=== PATIENT | female | born 1955 | race Caucasian/White ===

== ENCOUNTER → 2017-10-03 | Outpatient (CLI) | payer BC ==
[~2017-10-03] MED LIST: ALEVE220 MG PO; APAP500; CALCIUM 500 +1 EAC5 PO; CLONAZEPAM 0.50.5 M1 PO; COLACE100 MG; DICLOFENAC SODI75 MG PO; DIPHENHIST50 MG PO; FISHOIL; GABAPENTIN100 MG PO; IBUPROFEN 200200 M1 PO; IBUPROFEN 400400 M1 PO; LEXAPRO 10 MG T10 MG PO; LIORESAL 10 MG10 MG PO; MIRALAX255 GM; NABUMETONE 500500 M1 PO; NEURONTIN 300300 M1 PO; NEURONTIN 300M300 M2 PO; NEURONTIN600 MG PO; NEURONTIN800 MG PO; NUCYNTA ER100 MG PO; NUCYNTA100 MG PO; NUCYNTA75 MG PO; OXYCODONE HCL5 MG PO; ROXICODONE5 MG PO; SERTRALINE HCL50 MG PO; SKELAXIN 800 M800 MG PO; VALIUM10 MG PO; VICODIN 5-5001 EACH PO; VIT D PO; ZOLOFT 50 MG TA50 M1 PO; ZOLOFT PO
--- NOTE | 2017-10-19 07:40 | PAINCON ---
[address] [address] PAIN MANAGEMENT CONSULTATION Name: VIRIDIANA AYALA Room: [facility].#: [id number] Admission: 10/03/17 Attend Phys: Justin Jordan DO Discharge: Date of : 51 Report #: [id number] THIS REPORT FOR: //name// CC: Justin Camp III, MD DATE OF SERVICE: 10/03/2017 REFERRING PHYSICIAN: Byron Camp III, M.D. CHIEF COMPLAINT: Low back pain, bilateral lower extremity pain and increasing neck pain. HISTORY OF PRESENT ILLNESS: As you know, the patient is a 62-year-old female who has [facility] for low back pain and bilateral lower extremity pain for years. She returns today stating increasing neck pain, for which she wishes further evaluation. She denies new injury or new trauma that may have led to progression of neck symptoms. She states this has been present for some time, but has not been intense until just recently. She has been referred back to our clinic for medication management and also to evaluate neck pain. ALLERGIES: IODINATED CONTRAST AGENTS, CODEINE, CLINDAMYCIN, ADHESIVE TAPES, CLARITHROMYCIN AND LEVOFLOXACIN. CURRENT MEDICATIONS: Baclofen, clonazepam, gabapentin, naproxen, oxycodone and sertraline. SOCIAL HISTORY: The patient denies tobacco, alcohol, IV or illicit drug use. She is retired. retired years ago. She is unaccompanied today. IMAGING: No new imaging available. PHYSICAL EXAMINATION: VITAL SIGNS: Blood pressure 133/71, pulse 71 and respiratory rate 16, unlabored. The patient is 97% on room air, current temperature 98.0 degrees Fahrenheit. Height 5 feet 7 inches tall, weight 190 pounds and BMI calculated at 29.8. GENERAL: Well-developed, well-nourished and well-hydrated 62-year-old female appearing her stated age. She is placing pain score today 3/10. HEENT: Normocephalic, atraumatic. Pupils equal, round and reactive to light. Extraocular muscles are intact. Sclerae nonicteric, without injection. NEUROLOGIC: Cranial nerves 2-12 grossly intact. Speech is fluent. LUNGS: Clear. No wheezes, rhonchi or rales. CARDIOVASCULAR: Regular. [place] [address] PAIN MANAGEMENT CONSULTATION Name: VIRIDIANA AYALA Remy Room: [facility]#: [id number] Admission: 10/03/17 Attend Phys: Justin Jordan DO Discharge: Date of : 53 Report #: [id number] ABDOMEN: Soft, nontender. EXTREMITIES: Show no clubbing, no cyanosis and no edema. MUSCULOSKELETAL: There is some palpatory tenderness over the paraspinal musculature, cervical spine. No spinous process tenderness. Cervical provocation testing is met with increasing pain. No radiation of symptoms. Spurling's test is negative. Muscle bulk and tone equal and symmetrical in the lower and upper extremities. She is intact to light touch from C5-T1 dermatomes. Seated straight leg raising negative. Supine straight leg raising is positive. Ankle clonus negative. Babinski is negative. ASSESSMENT: 1. Chronic neck pain. 2. Cervical spondylosis without radiculopathy. 3. Chronic lumbar radiculopathy. 4. Displacement of lumbar intervertebral disk with radiculopathy. 5. Lumbosacral spondylosis with radiculopathy. 6. Lumbar degeneration. 7. Chronic intractable pain. PLAN: 1. The patient has returned today in followup visit where we were discussing the continuation of medication therapy, when the patient described some increasing neck pain issues and some crepitus with movement and pain with certain activities. The patient and I discussed that further evaluation of the neck would be warranted. We will send the patient for x-ray imaging, AP and lateral imaging of the cervical spine, will be obtained today. We will review the findings once they are available and discuss the treatment options based on the findings. I do believe we will see some arthritic changes depending on how profound those arthritic changes may change our direction of treatment. At present, we will use a conservative approach. 2. The patient will be sent for physical therapy twice a week for 6 weeks for cervical spondylosis without radiculopathy. We will initiate therapy with physical therapy and then discuss medication management if necessary or interventional treatments, depending on the findings of the x-ray imaging. 3. The patient will be continued on oxycodone 5 mg dose 1-1/2 tabs twice a day. She was given #90 tablets, releases of today, 4 weeks from today, 8 weeks from today, 3 months' worth of medication. 4. The patient was provided a refill prescription on her clonazepam 0.5 mg dose 1 tab p.o. at bedtime, #30, 2 refills. 5. The patient was provided prescription of diclofenac sodium 75 mg dose 1 tab p.o. b.i.d., #60 with 2 refills, 3 months' worth of medication. 6. The patient will contact our clinic over the next couple of days and we can provide the findings of the x-ray imaging, discuss interventional treatments if necessary. We will be looking forward to talking to her on the phone about the [facility] [address] [place] [address] PAIN MANAGEMENT CONSULTATION Name: VIRIDIANA AYALA Room: [facility] Ceja#: [id number] Admission: 10/03/17 Attend Phys: Justin Jordan DO Discharge: Date of : 51 Report #: [id number] x-ray imaging. If return visit is necessary, we will schedule her at that point. <ELECTRONICALLY SIGNED> By: Justin Jordan DO 10/19/17 0740 1216 [id number] Jordan DO /nt
== END ==
LOC: M.PC 01:13
DX: M51.16 Intervertebral disc disorders with radiculopathy, lumbar region (principal); M47.22 Other spondylosis with radiculopathy, cervical region; M54.2 Cervicalgia; M47.27 Other spondylosis with radiculopathy, lumbosacral region; M47.896 Other spondylosis, lumbar region; G89.29 Other chronic pain

== ENCOUNTER → 2017-12-27 | Outpatient (CLI) | payer BC ==
--- NOTE | 2017-12-28 14:44 | PAINCON ---
[address] [address] PAIN MANAGEMENT CONSULTATION Name: VIRIDIANA AYALA Room: [facility] Marcial#: [id number] Admission: 12/27/17 Attend Phys: Kriss Kaba MD Discharge: Date of : 53 Report #: [id number] THIS REPORT FOR: //name// CC: Kriss Camp DATE OF SERVICE: 12/27/2017 CHIEF COMPLAINT: Lumbar radicular pain down in the lower portion of the back and lower extremities. FOLLOWUP HISTORY: The patient is a 62-year-old female who has been followed by Dr. Justin Jordan. This is my first time meeting with her. She has a history of chronic low back pain. She does have a spinal cord stimulator and pain in place. She finds that this is helpful. She takes care of her father who lives with her. She rates her pain as a 0 with her current medicine use at this time. She finds that the oxycodone 7.5 mg q.12 hours is helpful. She also uses Voltaren and gabapentin. She finds that all these medications together helpful in conjunction with her spinal cord stimulator. She would like to have her medications renewed. She states that they continue to be helpful. She is not having any problems with somnolence, confused mentation or constipation. She feels that she is working and these medications are beneficial. She has been suffering from chronic pain since 2009. ALLERGIES: IV CONTRAST DYE, CODEINE, ADHESIVES, CLINDAMYCIN, CLARITHROMYCIN, LEVOFLOXACIN. CURRENT MEDICATIONS: Baclofen 10 mg b.i.d., clonazepam 0.5 mg, Voltaren 75 mg tablets b.i.d., Neurontin 600 mg 2 tablets a.m. one tablet at noon, and 2 tablets at bedtime, Naprosyn 220 mg t.i.d., oxycodone 5 mg q.12 hours, Zoloft 150 mg daily. PAST MEDICAL HISTORY: Depression, anxiety, gastroesophageal reflux. PAST SURGICAL HISTORY: Cholecystectomy, ankle surgery, eyelid surgery, tonsillectomy, x 2, plantar fasciitis release, carpal tunnel release. 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 REVIEW OF SYSTEMS: The patient has pain and discomfort radiating down into her L4 dermatomal distribution bilateral. She has also had some pain in the cervical area with occasional numbness and tingling. MRI of the lumbar spine dated 04/23/2010 showed a mild bulge at the L4-L5 disc noted with significant bilateral facet degenerative changes with some ligamentum flavum hypertrophy with central canal mildly narrowed to 1 cm. Mild inferior [place] [address] PAIN MANAGEMENT CONSULTATION Name: VIRIDIANA AYALA [id number] Admission: 12/27/17 Attend Phys: Kriss Kaba MD Discharge: Date of : 53 Report #: [id number] narrowing is noted. There is, at L3-L4, mild disc bulging with moderate facet degenerative changes. Some slight inferior neural foraminal narrowing at L2-L3. There is moderate bulging seen with moderate facet degenerative changes. L5-S1 appears normal. PAIN CLINIC ASSESSMENT: 1. The patient states she is not being treated for osteoarthritis or rheumatoid arthritis. 2. Height 5 feet 7 inches, weight 180 pounds, BMI is 29. 3. Vital Signs: Blood pressure 119/79, heart rate 77, respiratory rate 16, room air saturation 94%, and temperature 98.2. 4. Pain intensity is 10. 5. Fall risk. The patient has not fallen. 6. The patient is not on blood thinners. 7. History of hypertension. The patient has not been treated for hypertension. 8. Opioid therapy greater than 6 weeks. The patient has signed the pain clinic contract. 9. Risk assessment tool. 10. Functional assessment tool. 11. Recreational drug use. The patient denies. 12. Tobacco use: The patient denies. 13. Alcohol use: The patient denies. PHYSICAL EXAMINATION: GENERAL: The patient is a well-developed white female. Appearance: Appears her stated age. Orientation: The patient is alert and oriented x 3. AFFECT: The patient's affect appears appropriate. HEENT: Normocephalic, atraumatic. Extraocular eye muscles intact. Speech is normal. No complaints of sinus congestion. NECK: Without adenopathy or bruits. CHEST: Lungs clear to auscultation. HEART: Regular rate. ABDOMEN: Nontender. MUSCULOSKELETAL: Alignment generally appears normal. Low back pain. The patient does have some pain and discomfort with pain radiating down into the L4-L5 nerve distribution bilaterally. Muscle bulk appears to be normal. The patient's gait appears normal. IMPRESSION: 1. History of lumbar radiculopathy in the L4-L5 distribution. 2. Lumbosacral spondylosis. 3. Chronic neck pain. 4. Cervical spondylosis without radiculopathy. 5. Chronic lumbar radiculopathy. 6. Displacement of lumbar intervertebral disc with radiculopathy. 7. Lumbosacral spondylosis [place] [address] PAIN MANAGEMENT CONSULTATION Name: VIRIDIANA AYALA Room: [facility]#: [id number] Admission: 12/27/17 Attend Phys: Kriss Kaba MD Discharge: Date of : 53 Report #: [id number] 8. Lumbar degeneration. 9. Chronic intractable pain. RECOMMENDATION: We discussed treatment options with the patient. At this juncture, she feels that her pain medications are adequate. She rates her pain as a zero at this juncture with the use of her current medical regimen of oxycodone 7.5 mg b.i.d. and clonazepam, Voltaren and gabapentin. She takes care of her father. This is quite taxing. She overall feels that this medication enables her to continue to be productive and take care of her father and activities of daily living. She is having no complications from its use. She keeps it in a guarded area. She is aware that opioid medications can be addictive as well as their potency can fall off with tolerance. She feels that things are going reasonably well and would like to have her medications renewed today. She will call us if she has any problems with medications. The patient has been given a script to go for physical therapy. This was issued on 09/2018. We would like to thank you for letting us participate in her care. We hope she continues to improve. <ELECTRONICALLY SIGNED> By: Kriss Kaba MD 12/28/17 1444 1406 1856N. Joseph Kaba MD /VASILE
== END ==
LOC: M.PC 12-26 08:30
DX: M47.26 Other spondylosis with radiculopathy, lumbar region (principal); M47.22 Other spondylosis with radiculopathy, cervical region; M51.16 Intervertebral disc disorders with radiculopathy, lumbar region; M47.27 Other spondylosis with radiculopathy, lumbosacral region; G89.4 Chronic pain syndrome; I10 Essential (primary) hypertension

== ENCOUNTER → 2018-03-21 | Outpatient (CLI) | payer BC ==
--- NOTE | 2018-03-29 14:05 | PAINCON ---
[address] [address] PAIN MANAGEMENT CONSULTATION Name: VIRDIIANA AYALA Room: [facility] Ceja#: [id number] Admission: 03/21/18 Attend Phys: Kriss Kaba MD Discharge: Date of : 53 Report #: [id number] THIS REPORT FOR: //name// CC: Kriss Camp DATE OF SERVICE: 03/21/2018 FOLLOWUP HISTORY: The patient is a 62-year-old female who has been followed in the Pain Clinic. She has history of chronic low back pain. She uses a spinal cord stimulator. As you may recall, she did have some burning discomfort. This was in the past. Her generator was replaced. She is not having any problem at this juncture. Overall, she feels that her spinal cord stimulator continues to be helpful. Rates her pain as a very controlled level of about 0 today. She finds that her medications continued to be helpful. Feels that gabapentin, oxycodone, clonazepam and Voltaren are helpful. Denies any problems with Voltaren with her GI tract. Feels that baclofen is efficacious as well. She is taking her medication as prescribed. Not have any problems with them. She has returned today for renewal of her medications. Her pain is diffusely involved in her low back. Has some pain that radiates down into her legs. This has been an ongoing problem for "years." Notes that things that exacerbate her discomfort can be activity, cold weather, walking, sitting, standing, prolonged lifting or bending. ALLERGIES: IV CONTRAST DYE, CODEINE, ADHESIVES, CLINDAMYCIN, CLARITHROMYCIN, AND LEVOFLOXACIN. CURRENT MEDICATIONS: Baclofen 10 mg b.i.d., clonazepam 0.5 mg, Voltaren 75 mg b.i.d., Neurontin 2 tablets at bedtime and 1 tablet a.m., Naprosyn 220 mg t.i.d., oxycodone 5 q.12h., and Zoloft 150 mg daily. PAIN CLINIC ASSESSMENT: 1. The patient is not being treated for osteoarthritis or rheumatoid arthritis. 2. Height 5 feet 7 inches, weight 189 pounds, BMI is 29.7. 3. Vital signs: Blood pressure 140/77, heart rate 82, respiratory rate 16, room air saturation 95%, and temperature 98.2. 4. Pain intensity, 0/10. 5. Fall risk. The patient has not fallen in the last 3 months. 6. Blood thinner. The patient is not on a blood thinning medication. 7. History of hypertension. The patient is not being treated for hypertension. 8. Opioid therapy greater than 6 weeks. The patient has signed a contract with the Pain Clinic today. She only gets her medication from one source. 9. Risk assessment tool. 10. Functional assessment tool. 11. Recreational drug use. The patient denies use of recreational drugs. 12. Tobacco: The patient [place] [address] PAIN MANAGEMENT CONSULTATION Name: LUCYVIRIDIANA Remy Room: [facility]#: [id number] Admission: 03/21/18 Attend Phys: Kriss Kaba MD Discharge: Date of : 53 Report #: [id number] 13. Alcohol use. The patient denies use of alcohol. HISTORY OF PRESENT ILLNESS: The patient is a well-developed white female, appears her stated age. She is alert and oriented x 3. Her affect is appropriate. HEENT: Normocephalic and atraumatic. Extraocular eye muscles intact. The patient wears glasses. Speech is fluent. Mucous membranes are moist. NECK: Without adenopathy or bruits. CHEST: Clear to auscultation without crackles or rales. HEART: Regular rate. S1, S2. ABDOMEN: Nontender without organomegaly. MUSCULOSKELETAL: Alignment appears normal without significant kyphosis, scoliosis or lordosis. The patient does have pain, which radiates down into the lower portion of her back in the L4-L5 distribution bilaterally. Gait is normal. Upper extremity muscle strength 5/5 without sensory changes. Muscle bulk symmetrical. ASSESSMENT: 1. History of lumbar radiculopathy in the L4-L5 distribution. 2. Lumbosacral spondylosis. 3. Chronic neck pain. 4. Cervical spondylosis without radiculopathy. 5. Chronic lumbar radiculopathy. 6. Displacement of lumbar intervertebral disk with radiculopathy. 7. Lumbosacral spondylosis with radiculopathy. 8. Lumbar degeneration. 9. Chronic intractable pain. 10. Spinal cord stimulator placement for control of pain -- history of generator change. RECOMMENDATIONS: We discussed treatment options with the patient. She feels at this juncture, things are going reasonably well. Overall, she rates her pain as a 0 today. She finds that things are going reasonably well. She has had no complications from her medications. She does not feel that she needs to take as much gabapentin, which was approximately 6 tablets per day. She feels that 3 tablets per day would be more efficacious; that is what she is currently taking without any untoward consequences. She continues to live with her and take care of her family/father. She is aware of opioid medications and their addictive nature. She is watching the news. Keeps her medications in a guarded area. I understand that she should only get her medication from one source. The patient has been given a drug test today. She has also signed a contract to renew her medications with [place] [address] PAIN MANAGEMENT CONSULTATION Name: VIRIDIANA AYALA Room: [facility]#: [id number] Admission: 03/21/18 Attend Phys: Kriss Kaba MD Discharge: Date of : 53 Report #: [id number] We would like to thank you for letting us participate in her care. We hope she continues to improve. <ELECTRONICALLY SIGNED> By: Kriss Kaba MD 03/29/18 1405 0932 1120N. Joseph Kaba MD /nt
== END ==
LOC: M.PC 01:57
DX: M47.27 Other spondylosis with radiculopathy, lumbosacral region (principal); M47.812 Spondylosis without myelopathy or radiculopathy, cervical region; M51.16 Intervertebral disc disorders with radiculopathy, lumbar region; G89.4 Chronic pain syndrome; M54.2 Cervicalgia

== ENCOUNTER → 2018-06-13 | Outpatient (CLI) | payer BC ==
--- NOTE | 2018-06-14 16:42 | PAINCON ---
[address] [address] PAIN MANAGEMENT CONSULTATION Name: LUCYVIRIDIANA L Room: [facility]#: [id number] Admission: 06/13/18 Attend Phys: Kriss Kaba MD Discharge: Date of : 53 Report #: [id number] THIS REPORT FOR: //name// CC: Kriss Camp DATE OF SERVICE: 06/13/2018 CHIEF COMPLAINT: Low back pain in both legs. HISTORY OF PRESENT ILLNESS: The patient is a 62-year-old female, who has been followed in the pain clinic because of chronic pain involving her back. She has a spinal cord stimulator in place. She has had the generator replaced. Overall, she feels that things are going reasonably well. She rates her pain as a 2/10. She is having some pain that radiates down into her right leg and has switched over to the left side. She has used OxyContin in the past, but has stopped this medication and feels that things are going reasonably well. She feels that the ibuprofen is working "okay." She notes that her pain is worsened sometimes with use of house work and activity. CURRENT MEDICATIONS: Baclofen 10 mg b.i.d., clonazepam 0.5 mg, Voltaren 75 mg b.i.d., Neurontin 2 tablets at bedtime, 1 tablet a.m.; Naprosyn 220 mg to use as an alternate with Voltaren; and Zoloft 150 mg daily. ALLERGIES: THE PATIENT IS ALLERGIC TO IV CONTRAST DYE, CODEINE, ADHESIVES, CLINDAMYCIN, CLARITHROMYCIN, AND LEVOFLOXACIN. PAIN CLINIC ASSESSMENT: 1. The patient is not being treated for osteoarthritis or rheumatoid arthritis. 2. Pain intensity is 2/10. 3. Fall risk. The patient has not fallen in the last 3 months. 4. Blood thinner. The patient is not on a blood thinning medication. 5. History of hypertension. The patient is not being treated for hypertension. 6. Opioid therapy greater than 6 weeks. The patient has stopped use of the oxycodone. She feels that she is doing okay without it. 7. Risk assessment tool. The patient is at low risk for use of opioid. 8. Functional assessment tool. 9. Recreational drug use. The patient denies use of recreational drugs. 10. Tobacco: The patient denies use of tobacco. 11. Alcohol: The patient denies frequent use of alcoholic beverages. PHYSICAL EXAMINATION: GENERAL: The patient is a well-developed, well-nourished white female. She appears her stated age. She is alert and oriented x 3. Her affect is appropriate. Height 5 feet 7 inches, weight is 193 pounds, and BMI is 30.4. VITAL SIGNS: Blood pressure is 129/86, heart rate is 80, respiratory rate is [facility] [address] [place] [address] PAIN MANAGEMENT CONSULTATION Name: VIRIDIANA AYALA Room: [facility]#: [id number] Admission: 06/13/18 Attend Phys: Kriss Kaba MD Discharge: Date of : 53 Report #: [id number] 16, room air saturation is 96%, and temperature is 98.1. HEENT: Normocephalic, atraumatic. Extraocular eye muscles intact. The patient wears glasses. Speech is fluent. Mucous membranes are moist. NECK: Without adenopathy or bruits. CHEST: Clear to auscultation without crackles or rales. HEART: Regular rate. S1, S2. ABDOMEN: Nontender without organomegaly. MUSCULOSKELETAL: Without significant kyphosis, scoliosis, or lordosis. The patient does have some pain in low back area. It radiates down into the lower portion of her back and in the L4-L5 distribution bilaterally. Gait is normal. Upper extremity strength is judged to be 5/5 without sensory changes. Muscle bulk is symmetric. ASSESSMENT: 1. History of lumbar radicular pain in the L4-L5 distribution. 2. Lumbosacral spondylosis. 3. Chronic neck pain. 4. Cervical spondylosis without radiculopathy. 5. Chronic lumbar radiculopathy. 6. Displacement of lumbar intervertebral disk with radiculopathy. 7. Lumbosacral spondylosis with radiculopathy. 8. Lumbar degeneration. 9. Chronic intractable pain. 10. Spinal cord stimulator placed for pain control, status post generator change. RECOMMENDATIONS: We have discussed treatment options with the patient. Overall, she feels that things are going reasonably well. She has decreased the use of her oxycodone. At this juncture, she would like to continue with her current medications of gabapentin, clonazepam, and Zoloft. She feels that things are going reasonably well. She will call us if she has any problems with her medications. A script for 3 months of these medications have been written. <ELECTRONICALLY SIGNED> By: Kriss Kaba MD 06/14/18 1642 1708 0126N. Joseph Kaba MD /VASILE
== END ==
LOC: M.PC 04:24
DX: M47.27 Other spondylosis with radiculopathy, lumbosacral region (principal); M47.812 Spondylosis without myelopathy or radiculopathy, cervical region; M51.16 Intervertebral disc disorders with radiculopathy, lumbar region